=== PATIENT | male | born 1985 | race Caucasian/White ===

== ENCOUNTER 2017-01-17 08:51 | Day surgery (SDC) | payer OTHER ==
[~2017-01-17] VITALS: Ht 172.7 cm
[~2017-01-17 08:51] MED LIST: ATIVAN-DPS1 MG PO; FLEXERIL-DPS10 MG PO; HYDROCODONE 7.7.5 MG PO; LISINOPRIL-HCT1 EACH PO; LYRICA25 MG PO; NAPROSYN DPS500 MG PO; PEPCID DPS20 MG PO; TOPAMAX DPS25 MG PO; ZOFRAN4 MG PO; [UNRECOGNIZED DRUG - OTHER] PO
--- NOTE | 2017-01-18 08:02 | OR ---
ADMIT: 01/17/2017 RM/LOC: [facility] MR#: [id number] [address] [address] CYNTHIA JACKSON [address] [place] [address] Operative/Delivery Room Report SEX: M AGE: 31 : 1985 SURGERY DATE: 01/17/2017 SURGEON: Magdy Reid MD [employer]ATOR OPERATOR: None. PREPROCEDURE DIAGNOSES: 1. Cervicalgia. 2. Chronic daily headache. 3. Cervical facet syndrome. POSTPROCEDURE DIAGNOSES: 1. Cervicalgia. 2. Chronic daily headache. 3. Cervical facet syndrome. PROCEDURE PERFORMED: Bilateral C3-C4, C4-C5, C5-C6, and C6-C7 cervical facet injection. INDICATIONS FOR PROCEDURE: The patient is pleasant gentleman with history of chronic neck pain and headache secondary to above mentioned diagnoses, comes here for planned cervical facet injection. ANESTHESIA: Local without sedation. ESTIMATED BLOOD LOSS: Zero. COMPLICATIONS: None immediately evident. DESCRIPTION OF PROCEDURE: After the patient was seen in the preoperative area, vitals signs were taken. Prior to the procedure, the risks, benefits, and alternative therapies were discussed at length. Patient consent was obtained and updated. The patient was taken to the fluoroscopy suite and placed on the fluoroscopy table in the prone position. Pressure points were padded to comfort, monitors applied, and a timeout performed. The patient's head was turned to the left side initially. The cervical region was prepared with ChloraPrep and sterile drape placed. C-arm fluoroscopy was then brought in to identify the facet joint of the C3-C4, C4-C5, C5-C6, and C6- C7 level on the right side. A 3.5-inch 22-gauge curved-tip spinal needle was used to access the facet joint. The spinal needle was then advanced and made contact with the superior articular facet at each level and then walked off the joint. Then 0.5 mL Isovue-300 was instilled at each level showing a good intraarticular spread. The patient then received 1 mL of 5 mg of Decadron and ADMIT: 01/17/2017 RM/LOC: [facility] MR#: [id number] [address] CYNTHIA JACKSON [address] [place] [address] Operative/Delivery Room Report SEX: M AGE: 31 : 1985 0.25% of bupivacaine distributed at each level. Then the procedure was repeated on the left side. At bilateral C3-C4, C4-C5, C5-C6, and C6-C7 level, his joints were reproductive of pain. The patient tolerated the procedure well and there were no complications. PLAN: The patient was examined after 20 minutes and had 80% reduction of pain, and increase in ROM from 10 degrees to 20 degrees of extension. Discharge instructions were given, followup scheduled. The patient was discharged home with a city driver. Magdy Reid MD/ emma JOB #: [id number] CC: Magdy Reid, Attending Physician Enrique Zhang, Family Physician
== END 2017-01-17 11:00 | disposition home or self-care (01) ==
LOC: SSS 08:51
PROC: 3E0U3BZ Introduction of Anesthetic Agent into Joints, Percutaneous Approach (ICD-10-PCS; principal; 2017-01-17)
PROC: BR14ZZZ Fluoroscopy of Cervical Facet Joint(s) (ICD-10-PCS; principal; 2017-01-17)
PROC: 3E0U33Z Introduction of Anti-inflammatory into Joints, Percutaneous Approach (ICD-10-PCS; principal; 2017-01-17)
DX: G89.29 Other chronic pain (principal); M47.22 Other spondylosis with radiculopathy, cervical region; M53.82 Other specified dorsopathies, cervical region; R51 Headache; F41.9 Anxiety disorder, unspecified; F31.9 Bipolar disorder, unspecified; I10 Essential (primary) hypertension; F17.200 Nicotine dependence, unspecified, uncomplicated

== ENCOUNTER 2017-01-23 00:39 | Emergency (ER) | payer OTHER ==
--- NOTE | 2017-01-24 00:40 | ER ---
ADMIT: 01/23/2017 RM/LOC: ER [facility] MR#: [id number] [address] CYNTHIA JACKSON [address] [place] [address] Emergency Room Report SEX: M AGE: 31 : 1985 DATE: 01/23/2017 TIME: 0039 hours. Please refer to my T-sheet for complete H and P. HISTORY OF PRESENT ILLNESS: Briefly, the patient is a 31-year-old, comes in with headache, has a chronic issue of pain issues. He actually was seen by Dr. Reid just a few days ago. Rates it 07/14, and this is the same type he has had before. He has had MRIs and followed up. PHYSICAL EXAMINATION: VITAL SIGNS: Stable. HEENT: No meningismus. LUNGS: Clear. ABDOMEN: Soft. NEURO: Alert and oriented, nonfocal. EMERGENCY DEPARTMENT COURSE: I gave him Decadron 10 mg IM, Reglan 10 mg IM, Dilaudid 1.5 mg IM, and he had a ride home. ASSESSMENT: Acute migraine headache, treated in the Emergency Department as above. PLAN: Reglan, I added 10 mg t.i.d. p.r.n. and continue to follow up with Dr. Reid. Marlon Pierce MD/ emma JOB #: [id number] CC: Marlon Pierce MD, Attending Physician Enrique Zhang MD, Family Physician
== END 2017-01-23 01:45 | disposition home or self-care (01) ==
LOC: ER 00:39
DX: G43.909 Migraine, unspecified, not intractable, without status migrainosus (principal)

== ENCOUNTER 2017-01-31 10:25 | Day surgery (SDC) | payer OTHER ==
[~2017-01-31] VITALS: Ht 172.7 cm
--- NOTE | 2017-02-01 08:35 | OR ---
ADMIT: 01/31/2017 RM/LOC: [facility] MR#: [id number] [place] [id number] MCCCYN[address]IA NELSON [address] [place] [id number] Operative/Delivery Room Report SEX: M AGE: 31 : 1985 SURGERY DATE: 01/31/2017 SURGEON: Magdy Reid MD BOARD WORKER: None. PREPROCEDURE DIAGNOSES: 1. Cervical spondylosis. 2. Cervicalgia. 3. Chronic daily headaches. POSTPROCEDURE DIAGNOSES: 1. Cervical spondylosis. 2. Cervicalgia. 3. Chronic daily headaches. PROCEDURE PERFORMED: Right C3, C4, C5, C6, and C7 cervical radiofrequency ablation. INDICATIONS FOR PROCEDURE: The patient is a pleasant gentleman with history of chronic neck pain with shoulder pain and headaches who had a good diagnostic block comes here for planned right-sided cervical RFA. ANESTHESIA: Local without sedation. ESTIMATED BLOOD LOSS: Zero. COMPLICATIONS: None immediately evident. DESCRIPTION OF PROCEDURE: After the patient was seen in the preoperative area, vitals signs were taken. Prior to the procedure, the risks, benefits, and alternative therapies were discussed at length. Patient consent was obtained and updated. The patient was taken to the fluoroscopy suite and placed on the fluoroscopy table in the prone position. Pressure points were padded to comfort, monitors applied, and a timeout performed. The patient's jaw turned to the left side. The patient's cervical area was then prepped and draped sterilely using ChloraPrep. C-arm fluoroscopy was then ADMIT: 01/31/2017 RM/LOC: [facility] MR#: [id number] [address] [address] [place] [address] Operative/Delivery Room Report SEX: M AGE: 31 : 1985 brought in to identify the C3, C4, C5, C6, and C7 vertebrae. A 22-gauge 3.5- inch curved-tip spinal needle was then advanced through the anesthetize skin and made contact with the waist of C3, C4, C5, C6, and C7 on the right side. Once we obtained appropriate parameters for sensory motor testing, we proceeded with radiofrequency coagulation at each level, which consisted of 80 degrees for 90 seconds at each level. The patient tolerated the procedure well and had no complications. The patient was taken to the PACU where he recovered nicely. PLAN: Discharge instructions were given, followup scheduled. The patient was discharged home with a sprinkler driver. Magdy Reid MD/ emma JOB #: [id number] CC: Magdy Reid, Attending Physician Enrique Zhnag, Family Physician
== END 2017-01-31 12:12 | disposition home or self-care (01) ==
LOC: SSS 10:25
PROC: 3E0T3TZ Introduction of Destructive Agent into Peripheral Nerves and Plexi, Percutaneous Approach (ICD-10-PCS; principal; 2017-01-31)
PROC: BR14ZZZ Fluoroscopy of Cervical Facet Joint(s) (ICD-10-PCS; principal; 2017-01-31)
DX: G89.29 Other chronic pain (principal); M47.812 Spondylosis without myelopathy or radiculopathy, cervical region; R51 Headache

== ENCOUNTER 2017-02-27 07:09 | Day surgery (SDC) | payer OTHER | END 2017-02-27 09:05 | disposition home or self-care (01) | DX: G89.29 Other chronic pain (principal); M47.812 Spondylosis without myelopathy or radiculopathy, cervical region; M50.320 Other cervical disc degeneration, mid-cervical region, unspecified level; G43.909 Migraine, unspecified, not intractable, without status migrainosus; M79.1 Myalgia; F41.9 Anxiety disorder, unspecified; I10 Essential (primary) hypertension; F17.200 Nicotine dependence, unspecified, uncomplicated; Z86.59 Personal history of other mental and behavioral disorders ==